=== PATIENT | male | born 1960 | race Caucasian/White ===

== ENCOUNTER 2017-08-28 03:33 | Emergency (ER) | payer OTHER ==
[~2017-08-28] VITALS: Ht 172.7 cm; Wt 101.6 kg
[2017-08-28 03:40] VITALS: Ht 172.7 cm; Wt 101.6 kg
[2017-08-28 04:11] LABS: BASOPHIL % 0.7 % (0-2); PLATELET COUNT 199 x10^3mcL (130-400); RED CELL DISTRIBUTION WIDTH 12.7 % (11.5-14.5)
[2017-08-28 04:29] LABS: CALCIUM 8.8 mg/dL (8.5-10.1); CARBON DIOXIDE 25.6 mmol/L (21-32); CHLORIDE SERUM 104 mmol/L (98-107); CREATININE SERUM 0.8 mg/dL (0.7-1.3); GFR1 > 60 mL/min; GLUCOSE SERUM 165 mg/dL (74-106); POTASSIUM SERUM 3.1 mmol/L (3.5-5.1); SODIUM SERUM 143 mmol/L (136-145)
[2017-08-28 04:34] LABS: ALBUMIN 3.9 g/dL (3.4-5.0); ALKALINE PHOSPHATASE 88 U/L (46-116); ALT/SGPT 44 U/L (16-63); AST/SGOT 23 U/L (15-37); BILIRUBIN TOTAL 0.3 mg/dL (0.20-1.00); LIPASE 137 IU/L (73-393); TOTAL PROTEIN, SERUM 8.1 g/dL (6.4-8.2)
[2017-08-28 06:04] VITALS: BP 172/109
== END 2017-08-28 06:04 | disposition home or self-care (01) ==
LOC: ED 03:33
PROVIDERS: Emergency Medicine
DX: R04.0 Epistaxis (principal); E78.5 Hyperlipidemia, unspecified; E87.6 Hypokalemia; R07.89 Other chest pain; I10 Essential (primary) hypertension
CPT/HCPCS: 36415

== ENCOUNTER 2017-08-29 00:04 | Emergency (ER) | payer OTHER ==
[~2017-08-29] VITALS: Ht 172.7 cm; Wt 103.4 kg
[2017-08-29 00:06] VITALS: Ht 172.7 cm; Wt 103.4 kg
[2017-08-29 01:40] VITALS: BP 165/111
== END 2017-08-29 01:40 | disposition home or self-care (01) ==
LOC: ED 00:04
DX: R04.0 Epistaxis (principal); I10 Essential (primary) hypertension; E78.5 Hyperlipidemia, unspecified

== ENCOUNTER 2017-08-30 12:40 | Emergency (ER) | payer OTHER ==
[~2017-08-30] VITALS: Ht 172.7 cm; Wt 99.8 kg
[2017-08-30 13:04] VITALS: Ht 172.7 cm; Wt 99.8 kg
[2017-08-30 16:04] VITALS: BP 149/99
== END 2017-08-30 16:04 | disposition home or self-care (01) ==
LOC: ED 12:40
DX: R04.0 Epistaxis (principal)